=== PATIENT | male | born 1985 | race Caucasian/White ===

== ENCOUNTER 2016-07-17 17:28 | Emergency (ER) | payer OTHER ==
[2016-07-17 20:15] LABS: HEMOGLOBIN 15.5 gm/dl (14.0-17.5); RED BLOOD COUNT 5.23 M/UL (4.20-5.50); WHITE BLOOD COUNT 12.5 K/UL (4.5-11.0)
[2016-07-17 20:28] LABS: BUN/CREATININE RATIO 8 (0-10)
== END 2016-07-17 21:36 | disposition home or self-care (01) ==
LOC: ER1 17:28
PROVIDERS: Emergency Medicine
DX: R10.9 Unspecified abdominal pain (principal); Z88.0 Allergy status to penicillin
CPT/HCPCS: 36415; 71020; 72131; 80053; 81001; 83690; 85025; 87086; 96374; 96375; 99284; J2270; J2405